=== PATIENT | female | born 1955 | race Caucasian/White ===

== ENCOUNTER 2023-06-13 11:18 | Emergency (ER) | payer OTHER ==
[~2023-06-13] VITALS: Ht 154.9 cm; Wt 71.2 kg
[2023-06-13 11:22] VITALS: BP 129/77; PULSE 103; RESP 18; TEMP 101.2; O2SAT 98
[2023-06-13] MEDS ORDERED: ACETAMINOPHEN EXTRA STRENGTH 500 MG TAB ONE (11:33)
[2023-06-13] MEDS ORDERED: ACETAMINOPHEN EXTRA STRENGTH 500 MG TAB PO ONE (11:35)
[2023-06-13] MEDS ORDERED: PROM118S6 PO (12:32)
[2023-06-13] MEDS ORDERED: NAPR-1704 PO (12:32)
[2023-06-13] MEDS ORDERED: ONDA-188 PO (12:32)
--- NOTE | 2023-06-13 12:32 | NUR ---
INFORMED THE PT THAT HE WOULD BE DISCHARGING HER HOME.
[2023-06-13 12:34] VITALS: BP 116/61; PULSE 91; RESP 20; TEMP 98.9; O2SAT 97
--- NOTE | 2023-06-13 12:39 | NUR ---
SWABS COLLECTED AND SENT TO THE LAB.
--- NOTE | 2023-06-13 12:45 | NUR ---
Patient discharged with v/s stable. Written and verbal after care instructions given and explained. Patient verbalized understanding. Ambulatory with steady gait. All questions addressed prior to discharge. Advised to follow up with PMD.
[2023-06-13] MEDS ORDERED: NIRM1TAB PO (14:44)
== END 2023-06-13 12:44 | disposition home or self-care (01) ==
LOC: MED 11:18
DX: U07.1 COVID-19 (principal); Z79.899 Other long term (current) drug therapy
CPT/HCPCS: 71045; 99284

== ENCOUNTER 2023-06-17 09:02 | Emergency (ER) | payer OTHER ==
[~2023-06-17] VITALS: Ht 165.1 cm; Wt 71.3 kg
[~2023-06-17 09:02] MED LIST: NAPR-1704 PO; NIRM1TAB PO; ONDA-188 PO; PROM118S6 PO
[2023-06-17 09:03] VITALS: BP 126/75; PULSE 78; RESP 20; TEMP 98.3; O2SAT 98
[2023-06-17] MEDS ORDERED: NAPH15DR OP (10:20)
--- NOTE | 2023-06-17 10:50 | NUR ---
Patient discharged with v/s stable. Written and verbal after care instructions FOR ALLERGIC CONJUCTIVITIS given and explained. Patient alert, oriented and verbalized understanding of instructions. Ambulatory with steady gait. All questions addressed prior to discharge. ID band removed. Patient advised to follow up with PMD. Rx of ALLERGY EYE DROPS given. Opportunity to ask questions provided and answered.
--- NOTE | 2023-06-17 11:33 | NUR ---
The patient's care was reviewed and supervised by MOSES WYMAN RN.
== END 2023-06-17 10:50 | disposition home or self-care (01) ==
LOC: MED 09:02
DX: H10.13 Acute atopic conjunctivitis, bilateral (principal); Z79.899 Other long term (current) drug therapy
CPT/HCPCS: 99281